=== PATIENT | female | born 1990 | race African-American/Black ===

== ENCOUNTER 2020-09-04 22:06 | Emergency (ER) | payer MEDICAID ==
[~2020-09-04] VITALS: Ht 162.6 cm; Wt 75.0 kg
[2020-09-04] MEDS ORDERED: IBUPROFEN 600MG TABLET PO ONE (23:00)
[2020-09-04 23:17] VITALS: BP 129/85
[2020-09-04] MEDS ORDERED: IBUP-2029 MT (23:54)
[2020-09-05] MEDS ORDERED: FLUORESCEIN SODIUM 1MG/STRIP LEFTEYE ONE (00:15)
[2020-09-05] MEDS ORDERED: TETRACAINE 0.5% OPHTH DROPS 4ML LEFTEYE ONE (00:15)
== END 2020-09-05 00:53 | disposition home or self-care (01) ==
LOC: ER 22:06
DX: S16.1XXA Strain of muscle, fascia and tendon at neck level, initial encounter (principal); H53.8 Other visual disturbances; V49.49XA Driver injured in collision with other motor vehicles in traffic accident, initial encounter; Y93.89 Activity, other specified; Y92.89 Other specified places as the place of occurrence of the external cause; Y99.8 Other external cause status
CPT/HCPCS: 99284